=== PATIENT | female | born 1955 | race Two or more races ===

== ENCOUNTER 2020-10-02 19:23 | Emergency (ER) | payer MEDICAID ==
[~2020-10-02] VITALS: Ht 157.5 cm; Wt 56.7 kg
--- NOTE | 2020-10-02 19:39 | NUR ---
ED Nurse Note: Pt c/o skin problem to right of umbilicus. Reports she noticed it x1 week ago, but it is worse x3 days. Pt AAO x4, ambulated into ED with no assistance.
[2020-10-02 19:41] VITALS: BP 196/80
[2020-10-02] MEDS ORDERED: CEPHALEXIN500 MG ORAL (19:52)
[2020-10-02] MEDS ORDERED: BACTRIM DS TAB1 EAC1 ORAL (19:52)
--- NOTE | 2020-10-02 20:04 | NUR ---
ER DISCHARGE NOTE: Patient is cleared to be discharged per ER MD, pt is aaox4, on room air, with stable vital signs. pt was given d/c and prescription instructions, pt was able to verbalize understanding, pt id band removed. pt is able to ambulate with steady gait. pt took all belongings.
[2020-10-02 20:05] VITALS: BP 190/91
--- NOTE | 2020-10-02 20:38 | Emergency Room Report ---
History of Present Illness General Chief Complaint: Skin Rash/Abscess Source: Patient Present Illness HPI 64-year-old female presents for evaluation. Notes a swelling to her abdomen. Near her umbilicus. Noticed 1 week ago. Denies pain. Denies fevers or chills. Denies nausea or vomiting. No other aggravating relieving factors. Denies any other associated symptoms Allergies: Coded Allergies: No Known Allergies (Unverified , 10/02/20) COVID-19 Screening Contact w/high risk pt: No Experienced COVID-19 symptoms?: No COVID-19 Testing performed AGENT SPA DESK: No Patient History Past Medical History: none Past Surgical History: none Pertinent Family History: none Social History: Denies: smoking, alcohol use, drug use Now: No Immunizations: UTD Reviewed Nursing Documentation: PMH: Agreed; PSxH: Agreed Nursing Documentation-PMH Past Medical History: No History, Except For Hx Hypertension: Yes Review of Systems All Other Systems: negative except mentioned in HPI Physical Exam Vital Signs Date Time Temp Pulse Resp B/P (MAP) Pulse Ox O2 Delivery O2 Flow Rate FiO2 10/02/20 19:29 98.2 70 20 196/80 (118) 95 Room Air Sp02 EP Interpretation: reviewed, normal General Appearance: no apparent distress, alert, GCS 15, non-toxic Head: normocephalic, atraumatic Eyes: bilateral eye normal inspection, bilateral eye PERRL ENT: hearing grossly normal, normal pharynx, no angioedema, normal voice Neck: full range of motion, supple/symm/no masses Respiratory: chest non-tender, lungs clear, normal breath sounds, speaking full sentences Cardiovascular #1: regular rate, rhythm, no edema Cardiovascular #2: 2+ carotid (R), 2+ carotid (L), 2+ radial (R), 2+ radial (L), 2+ dorsalis pedis (R), 2+ dorsalis pedis (L) Gastrointestinal: normal bowel sounds, non tender, soft, non-distended, no guarding, no rebound Rectal: deferred Genitourinary: normal inspection, no CVA tenderness Musculoskeletal: back normal, normal range of motion, gait/station normal, non- tender Neurologic: alert, motor strength/tone normal, oriented x3, sensory intact, responsive, speech normal Psychiatric: judgement/insight normal, memory normal, mood/affect normal, no suicidal/homicidal ideation Reflexes: 3+ bicep (R), 3+ bicep (L), 3+ tricep (R), 3+ tricep (L), 3+ knee (R), 3+ knee (L) Skin: other - Small area 1 cm of erythema and induration just right of the umbilicus. No fluctuance. No pain Lymphatic: no adenopathy Medical Decision Making Diagnostic Impression: Primary Impression: Abscess ER Course Hospital Course 64-year-old female presents with induration and redness on the abdomen Differential diagnoses include: Cellulitis, dermatitis, insect bite, abscess Clinical course Patient placed on stretcher. After initial history, physical exam reveals a middle aged female in no acute distress. There is a small area of induration and erythema just right of the umbilicus. No fluctuance. Abdomen soft. No guarding or rebound I discussed findings with patient. We will discharge with antibiotics. Warm compresses. Safe for discharge with close outpatient follow-up. I will provide referrals Diagnosis - abscess stable and discharged to home with prescription for Keflex, Bactrim. warm compresses. Instructed to followup with PMD. Instructed return to ED if symptoms recur or worsen Last Vital Signs Date Time Temp Pulse Resp B/P (MAP) Pulse Ox O2 Delivery O2 Flow Rate FiO2 10/02/20 20:05 98.0 89 16 190/91 100 Room Air Status: improved Disposition: HOME, SELF-CARE Condition: Stable Scripts Trimethoprim/Sulfamethoxazole 160/800* (BACTRIM DS TABLET*) 1 Each Tablet 1 TAB ORAL Q12H, #14 TAB 0 Refills Prov: Mike Gonzalez MD 10/02/20 Cephalexin* (KEFLEX*) 500 Mg Capsule 500 MG ORAL EVERY 6 HOURS, #28 CAP Prov: Mike Gonzalez MD 10/02/20 Referrals: [facility],REFERRING (PCP) Judah [facility] Patient Instructions: Abscess Mike Gonzalez MD Oct 02, 2020 20:38
== END 2020-10-02 20:07 | disposition home or self-care (01) ==
LOC: EMR 19:54
DX: L02.211 Cutaneous abscess of abdominal wall (principal); I10 Essential (primary) hypertension
CPT/HCPCS: 99282